=== PATIENT | female | born 1985 | race Caucasian/White ===

== ENCOUNTER 2019-07-12 18:40 | Inpatient (IN) | payer BC, OTHER ==
[~2019-07-12] VITALS: Ht 165.1 cm; Wt 60.4 kg
[~2019-07-12 18:40] MED LIST: ALBU90OI61 INH; Hair, Skin & N1 EACH PO; IBUP800 PO; LEVO750 PO; Mucinex1200 MG PO; OXYACE5T
[2019-07-12] MEDS ORDERED: PRENATAL TABLE1 EAC2 (20:10)
[2019-07-12] MEDS ORDERED: IRON150C PO (20:10)
[2019-07-12 21:19] LABS: BASOPHILS ABSOLUTE AUTO 0.03 K/mm3 (0.00-0.23); BASOPHILS PERCENT AUTO 1 % (0-2); EOSINOPHILS ABSOLUTE AUTO 0.07 K/mm3 (0.00-0.68); EOSINOPHILS PERCENT AUTO 1 % (0-6); Hematocrit 34.4 % (33.0-51.0); Hemoglobin 11.5 g/dL (11.5-16.0); IMMATURE GRAN ABSOLUTE AUTO 0.04 K/mm3 (0.00-0.10); IMMATURE GRAN PERCENT AUTO 1 % (0-1); LYMPHOCYTES ABSOLUTE AUTO 1.31 K/mm3 (0.84-5.20); LYMPHOCYTES PERCENT AUTO 22 % (21-46); MONOCYTES ABSOLUTE AUTO 0.52 K/mm3 (0.16-1.47); MONOCYTES PERCENT AUTO 9 % (4-13); Mean Corpuscular HGB 30.7 pg (26.0-34.0); Mean Corpuscular HGB Conc 33.4 g/dL (31.5-36.5); Mean Corpuscular Volume 92 fL (80-100); Mean Platelet Volume 11.2 fL (9.1-12.4); NEUTROPHILS ABSOLUTE AUTO 3.97 K/mm3 (1.96-9.15); NEUTROPHILS PERCENT AUTO 67 % (41-73); Platelet Count 121 K/mm3 (150-400); RDW Coefficient Variation 18.8 % (11.7-14.2); RDW Standard Deviation 63.1 fL (35.1-46.3); Red Blood Cell Count 3.74 M/mm3 (3.80-5.20); White Blood Cell Count 5.94 K/mm3 (4.00-11.30)
[2019-07-12 22:47] LABS: PCO2 Cord - Arterial 46.5 mmHg (40-50); PO2 Cord - Arterial 16.6 mmHg (16-20); pH Cord - Arterial 7.35 (7.28-7.35)
[2019-07-12 22:48] LABS: PCO2 Cord - Venous 37.6 mmHg (40-50); PO2 Cord - Venous 30.6 mmHg (28-32)
[2019-07-13 05:29] LABS: Hematocrit 29.9 % (33.0-51.0); Mean Corpuscular HGB 30.2 pg (26.0-34.0); Mean Corpuscular HGB Conc 33.4 g/dL (31.5-36.5); Mean Corpuscular Volume 90 fL (80-100); Mean Platelet Volume 11.1 fL (9.1-12.4); Platelet Count 129 K/mm3 (150-400); RDW Coefficient Variation 18.6 % (11.7-14.2); RDW Standard Deviation 61.4 fL (35.1-46.3); Red Blood Cell Count 3.31 M/mm3 (3.80-5.20); White Blood Cell Count 8.34 K/mm3 (4.00-11.30)
--- NOTE | 2019-07-14 10:57 | NUR ---
WRITTEN PRESCRIPTION HANDED TO THE PATIENT
[2019-07-14] MEDS ORDERED: Percocet 5-3251 EACH PO (10:58)
[2019-07-14] MEDS ORDERED: IBUP800 PO (10:58)
--- NOTE | 2019-07-14 13:54 | NUR ---
REVIEWED WRITTEN DISCHARGE INSTRUCTIONS WITH PT. PT VERBALIZED UNDERSTANDING. QUESTIONS ANSWERED.
--- NOTE | 2019-07-14 15:30 | NUR ---
PT ESCORTED OUT TO PRIVATE CAR AT 1410 WITH BELONGINGS IN STABLE CONDITION
== END 2019-07-14 14:10 | disposition home or self-care (01) | DRG 785 ==
LOC: BC 18:40 → OBS 18:40 → BC 18:41 → OBS 20:54 → BC 20:57
PROVIDERS: ADMIT Obstetrics & Gynecology
PROC: 10D00Z1 Extraction of Products of Conception, Low, Open Approach (ICD-10-PCS; principal; 2019-07-12 21:00)
PROC: 0UT70ZZ Resection of Bilateral Fallopian Tubes, Open Approach (ICD-10-PCS; 2019-07-12 21:00)
DX: O34.211 Maternal care for low transverse scar from previous cesarean delivery (principal); Z3A.39 39 weeks gestation of pregnancy; Z37.0 Single live birth
CPT/HCPCS: 36415; 59025; 82803; 85025; 85027; 86850; 86900; 86901; 88302; 99214; J0690; J0694; J1885; J2405; J2590; J2765; J3010; J7120

== ENCOUNTER → 2019-11-20 | Outpatient (CLI) | payer BC, OTHER ==
[~2019-11-20] MED LIST changes: +IRON150C PO; +PRENATAL TABLE1 EAC2; +Percocet 5-3251 EACH PO
== END | disposition home or self-care (01) ==
LOC: LAB 12:45 → LAB SHORT 12:45
DX: J02.9 Acute pharyngitis, unspecified (principal)
CPT/HCPCS: 87081

== ENCOUNTER 2020-04-25 17:38 | Emergency (ER) | payer BC, OTHER ==
[~2020-04-25] VITALS: Ht 165.1 cm; Wt 56.7 kg
== END 2020-04-25 21:54 | disposition home or self-care (01) ==
LOC: ER 17:38
DX: S02.40DA Maxillary fracture, left side, initial encounter for closed fracture (principal); S01.01XA Laceration without foreign body of scalp, initial encounter; S40.212A Abrasion of left shoulder, initial encounter; W01.0XXA Fall on same level from slipping, tripping and stumbling without subsequent striking against object, initial encounter
CPT/HCPCS: 12034; 70450; 73130; 99284-25; A9270-GY